=== PATIENT | female | born 1940 | race Caucasian/White ===

== ENCOUNTER → 2016-09-04 17:19 | Outpatient (CLI) | payer MEDICARE | END | disposition home or self-care (01) | LOC: D.MAMMO 08-30 15:45 | DX: Z12.31 Encounter for screening mammogram for malignant neoplasm of breast (principal) ==

== ENCOUNTER 2016-10-22 11:37 | Emergency (ER) | payer MEDICARE ==
[2016-10-22 12:07] LABS: APPEARANCE HAZY (CLEAR); BILIRUBIN NEGATIVE (NEGATIVE); COLOR YELLOW (YELLOW); GLUCOSE NEGATIVE (NEGATIVE); KETONE NEGATIVE (NEGATIVE); LEUKOCYTE ESTERASE 2+ (NEGATIVE); NITRITE NEGATIVE (NEGATIVE); PROTEIN NEGATIVE (NEGATIVE); UROBILINOGEN NORMAL (NORMAL)
[2016-10-22 12:09] LABS: BASOPHILS 0.1 % (0-2); EOSINOPHILS 2.1 % (0-7); HEMATOCRIT 36.3 % (36.0-48.0); HEMOGLOBIN 11.4 g/dL (12-16); IMMATURE GRANULOCYTES 0.4 % (0-5); LYMPHOCYTES 8.1 % (15-50); MCH 27.4 pg (26.0-34.0); MCHC 31.4 g/dL (31.0-37.0); MCV 87.3 fL (80.0-100.0); MEAN PLATELET VOLUME 9.6 fL (7.4-10.4); MONOCYTES 5.5 % (2-11); NEUTROPHILS 83.8 % (40-80); RBC 4.16 10x6/uL (4.00-5.40); RDW 14.4 % (11.5-14.5); WBC 16.8 10x3/uL (4.8-10.8)
[2016-10-22 12:09] LABS: BACTERIA MODERATE /hpf (NONE SEEN); RED CELLS - URINE 0-5 /hpf (0-5); WHITE CELLS - URINE 25-50 /hpf (0-5)
[2016-10-22 12:10] LABS: PLATELET COUNT 492 10x3/uL (130-400)
[2016-10-22 12:23] LABS: ALBUMIN 3.5 g/dL (3.4-5.0); ANION GAP 12.3 mmol/L (8-16); BILIRUBIN - TOTAL 0.31 mg/dL (0.2-1.3); CARBON DIOXIDE 24.4 mmol/L (21.0-32.0); CREATININE - SERUM 0.9 mg/dL (0.6-1.3); POTASSIUM - SERUM 3.7 mmol/L (3.5-5.1); PROTEIN - SERUM 7.4 g/dL (6.4-8.2)
== END 2016-10-22 13:15 | disposition home or self-care (01) ==
LOC: D.ER 11:37
PROVIDERS: Emergency Medicine
DX: R55 Syncope and collapse (principal); I10 Essential (primary) hypertension; E03.9 Hypothyroidism, unspecified

== ENCOUNTER → 2017-02-05 09:21 | Outpatient (CLI) | payer MEDICARE, OTHER | END | disposition home or self-care (01) | LOC: D.US 09:21 | DX: E03.9 Hypothyroidism, unspecified (principal) ==

== ENCOUNTER 2017-07-05 05:09 | Day surgery (SDC) | payer MEDICARE, OTHER ==
[2017-07-03 13:51] LABS: HEMATOCRIT 38.2 % (36.0-48.0); HEMOGLOBIN 12.6 g/dL (12-16); LYMPHOCYTES 18.2 % (15-50); MCH 29.8 pg (26.0-34.0); MCV 90.3 fL (80.0-100.0); MEAN PLATELET VOLUME 9.9 fL (7.4-10.4); NEUTROPHILS 76.4 % (40-80); RBC 4.23 10x6/uL (4.00-5.40); RDW 15.3 % (11.5-14.5)
[2017-07-03 14:01] LABS: CALC OSMOLALITY 284 mosm/kg (275-300); CALCIUM 9.3 mg/dL (8.5-10.1); CARBON DIOXIDE 23.7 mmol/L (21.0-32.0); CHLORIDE - SERUM 106 mmol/L (98-107); CREATININE - SERUM 0.7 mg/dL (0.6-1.3); GLUCOSE 87 mg/dL (74-106); POTASSIUM - SERUM 4.3 mmol/L (3.5-5.1); SODIUM 143 mmol/L (136-145); UREA NITROGEN 16 mg/dL (7-18); eGFR NON AFRICAN AMERICAN 87 mL/min (90-120)
[2017-07-03 14:02] LABS: PLATELET COUNT 387 10x3/uL (130-400)
[~2017-07-05] VITALS: Ht 149.9 cm; Wt 50.8 kg
--- NOTE | ~2017-07-05 | OP ---
PATIENT NAME: TOVA DOUGLAS MEDICAL RECORD: [id number] :44 LOCATION:[facility] ADMISSION DATE: SURGEON: CIRO DAVIS MD DATE OF OPERATION: 07/05/2017 PREOPERATIVE DIAGNOSES: 1. Anal pain. 2. Hemorrhoids. 3. Arthritis. POSTOPERATIVE DIAGNOSES: 1. Anal pain. 2. Hemorrhoids. 3. Arthritis. PROCEDURE: Anal exam under anesthesia. SURGEON: Ciro Davis MD REPORT OF PROCEDURE: The patient was placed in the jackknife prone position. An anoscope was inserted and a 360 degree inspection was performed of the anus, there was no sign of any fissures or fistulas, there were no signs of any masses or lesions. There were no sign of any internal hemorrhoids. There were 2 very small skin tags at the dentate line, but otherwise the anus appeared to be completely normal. I did not see any evidence of any bleeding. There was no sign of any excoriation of the tissue. There were no inflammatory changes to the tissue. I did a thorough inspection of the area and did a digital exam as well and again no sign of any hemorrhoids were found. At this point, we discontinued the surgery. COMPLICATIONS: None. CONDITION: Stable. ANESTHESIA: General endotracheal. BLOOD LOSS: None. TRANSINT:[id number] Voice Confirmation ID: [id number] DOCUMENT ID: [id number] CIRO DAVIS MD at 1123 CC: KOJO PAGE DO [id number] DICTATION DATE: 07/05/17 1259 [facility] PROFESSIONAL: 07/05/17 1323 [facility] 07/05/17 [place] [address]
[~2017-07-05 05:09] MED LIST: ASPIRIN EC81 M1 PO; COZAAR100 MG PO; FOLIC ACID1 MG PO; GEMFIBROZIL600 MG PO; LEVOXYL100 MCG PO; METHOTREXATE2.5 MG PO; OYST-CAL-5001 TAB PO; ZOLOFT25 MG PO
[2017-07-05] MEDS ORDERED: PRED FORTE5 ML EACH EYE (09:41)
[2017-07-05 09:47] VITALS: BP 148/60; Ht 149.9 cm; Wt 50.8 kg
== END 2017-07-05 14:45 | disposition home or self-care (01) ==
LOC: D.OPS 05:09 → D.PAN 11:30 → D.OPS 12:45
PROVIDERS: Surgery
DX: K62.89 Other specified diseases of anus and rectum (principal); K64.4 Residual hemorrhoidal skin tags; M19.90 Unspecified osteoarthritis, unspecified site; Z01.812 Encounter for preprocedural laboratory examination

== ENCOUNTER 2018-08-28 19:00 | Outpatient (CLI) | payer MEDICARE, OTHER ==
[2017-07-05 09:47] VITALS: BMI 21.8
[~2018-08-28 19:00] MED LIST changes: +PRED FORTE5 ML EACH EYE
== END 2018-08-28 23:59 | disposition home or self-care (01) ==
LOC: D.MAMMO 19:00
PROVIDERS: ATTEND Family Medicine
DX: Z12.31 Encounter for screening mammogram for malignant neoplasm of breast (principal)

== ENCOUNTER 2019-10-24 19:00 | Outpatient (CLI) | payer MEDICARE, OTHER ==
[2017-07-05 09:47] VITALS: BMI 21.8
== END 2019-10-24 23:59 | disposition home or self-care (01) ==
LOC: D.MAMMO 19:00
PROVIDERS: ATTEND Family Medicine
DX: Z12.31 Encounter for screening mammogram for malignant neoplasm of breast (principal)